=== PATIENT | male | born 1985 | race Caucasian/White ===

== ENCOUNTER 2020-04-17 11:37 | Emergency (ER) | payer SELFPAY ==
[~2020-04-17] VITALS: Ht 177.8 cm; Wt 88.5 kg
[2020-04-17] MEDS ORDERED: ONDANSETRON HCL INJ 2MG/ML 2ML 2 MG/ML VIAL IV STA (11:47)
[2020-04-17] MEDS ORDERED: PANTOPRAZOLE 40 MG 10ML VIAL IV STA (11:47)
[2020-04-17] MEDS ORDERED: SODIUM CHLORIDE 0.9% 1000ML 1,000 ML IV STA (11:47)
[2020-04-17] MEDS ORDERED: DICYCLOMINE HCL 20 MG/2 ML VIAL IM ONE (12:00)
[2020-04-17 12:01] LABS: BASOPHILS % 0.3 % (0.0-1.0); EOSINOPHILS # (AUTO) 0.1 (0.0-0.4); EOSINOPHILS % 0.5 % (0.0-6.0); HEMATOCRIT 42.5 % (38.2-49.6); HEMOGLOBIN 14.6 g/dL (14.0-18.0); LYMPHOCYTES # (AUTO) 2.5 (1.0-3.2); MEAN CORPUSCULAR HEMOGLOBIN 30.5 pg (28-32); MEAN CORPUSCULAR HGB CONC 34.4 g/dL (31-35); MEAN CORPUSCULAR VOLUME 88.9 fL (81-99); MONOCYTES % 6.5 % (4.4-11.3); NEUTROPHILS # (AUTO) 11.8 (2.1-6.9); NEUTROPHILS % 76.2 % (38.7-80.0); PLATELET COUNT 315 x10e3/uL (140-360); RED BLOOD COUNT 4.78 x10e6/uL (4.3-5.7); RED CELL DISTRIBUTION WIDTH 12.7 % (11.7-14.4)
[2020-04-17 12:06] LABS: INR 0.83; PARTIAL THROMBOPLASTIN TIME 24.6 seconds (23.8-35.5); PROTHROMBIN TIME 11.8 seconds (11.9-14.5)
--- OUTSIDE RECORDS SUMMARY | 2020-04-17 12:28 | XMS REPORT | Continuity of Care Document ---
Author Author [facility] Organization [facility] Address [address] [place] [address] Phone Unavailable Care Team Providers Care Box Spring Maker Name Role Phone NO, PCP PCP Unavailable Kg SAUNDERS Unavailable Problems Condition Name Condition Details Condition Category Status Onset Date Resolution Date Last Treatment Date Treating Clinician Comments Source Problem Condition Active [facility] Allergies, Adverse Reactions, Alerts This patient has no known allergies or adverse reactions. Social History Social Habit Start Date Stop Date Quantity Comments Source Sex Assigned At 1985 00:00:00 1985 00:00:00 Male [facility] Medications This patient has no known medications. Vital Signs Vital Name Observation Time Observation Value Comments Source Body Temperature 2020-03-10 18:51:00 98.4 [degF] [facility] Weight 2020-03-10 15:38:00 195 [lb_av] [facility] BMI (Body Mass Index) 2020-03-10 15:38:00 28.0 kg/m2 [facility] Procedures Procedure Date / Time Performed Performing Clinician [facility] e Computed tomography of abdomen and pelvis with contrast 00:00:00 [facility] X-ray of chest, single view 2020-03-10 00:00:00 [facility] Results Test Description Test Time Test Comments Results Result Comments Source CT ABDOMEN/PELVIS W 2020-03-10 20:04:00 [facility] [address], [place] [address] Patient Name: TREY ANAND Aris MR #: [id number] : 1985 Age/Sex: 34/M Req #: [id number] [facility] Physician: Ordered by: JAYCEE SAUNDERS MD Report #: [id number] Location: ER Room/Bed: Procedure: [id number] CT/CT ABDOMEN/PELVIS W Exam Date: 03/10/20 Exam Time: 1801 REPORT STATUS: Signed EXAM: CT Abdomen and Pelvis WITH contrast INDICATION: Lower abdominal pain. Vomiting COMPARISON: None. TECHNIQUE: Abdomen and pelvis were scanned utilizing a multidetector helical scanner from the lung base to the pubic symphysis after administration of IV contrast. Coronal and sagittal reformations were obtained. Routine protocol was performed. Scan was performed when during portal venous phase. IV CONTRAST: 100 mL of Isovue 370 ORAL CONTRAST: None COMPLICATIONS: None RADIATION DOSE: Total DLP: 252 mGy*cm Estimated effective dose: (DLP x 0.015 x size factor) mSv CTDIvol has been reviewed. It is below the limits set by the Radiation Protocol Committee (RPC). Dose modulation, iterative reconstruction, and/or weight based adjustment of the mA/kV was utilized to reduce the radiation dose to as low as reasonably achievable. FINDINGS: LINES and TUBES: None. LOWER THORAX: Unremarkable HEPATOBILIARY: No focal hepatic lesions. No biliary ductal dilation. GALLBLADDER: No radio-opaque stones or sludge. No wall thickening. SPLEEN: No splenomegaly. PANCREAS: No focal masses or ductal dilatation. ADRENALS: No adrenal nodules KIDNEYS/URETERS: Kidneys enhance symmetrically. No hydronephrosis. Small simple appearing posterior left renal cyst. No stones. GI TRACT: No abnormal distention, wall thickening, or evidence of bowel obstruction. Appendix is normal. Moderate amount of retained feces in the colon could be due to constipation. PELVIC ORGANS/BLADDER: Unremarkable. LYMPH NODES: No lymphadenopathy. VESSELS: Unremarkable. PERITONEUM / RETROPERITONEUM: No free air or fluid. BONES: Unremarkable. SOFT TISSUES: Unremarkable. IMPRESSION: Moderate amount of retained feces in the colon could be due to constipation. Signed by: Dr. Martinez Lu M.D. on 03/10/2020 8:08 PM Dictated By: MARTINEZ LU MD, MD 07 Transcribed By: ALESSANDRA on 03/10/202007 COPY TO: JAYCEE SAUNDERS MD CHEST SINGLE (NOT PORTABLE) 2020-03-10 15:56:00 [place] [address] Patient Name: TREY WING MR #: [id number] : 1985 Age/Sex: 34/M Req #: [id number] Adm Physician: Ordered by: JAYCEE SAUNDERS MD Report #: [id number] Location: ER Room/Bed: Procedure: [id number] DX/CHEST SINGLE (NOT PORTABLE) Exam Date: 03/10/20 Exam Time: 1528 REPORT STATUS: Signed EXAMINATION: CHEST SINGLE (NOT PORTABLE) INDICATION: Abdominal pain COMPARISON: None FINDINGS: LINES/TUBES:None LUNGS:The lungs are well-inflated. No focal consolidation or pulmonary edema. PLEURA:No pleural effusion or pneumothorax. MEDIASTINUM:The cardiomediastinal silhouette appears normal in size and shape. BONES/SOFT TISSUES:No acute osseous injury. ABDOMEN:No free air under the diaphragm. IMPRESSION: No focal pneumonia or pulmonary edema. Signed by: Luke Grullon MD on 03/10/2020 3:57 PM Dictated By: LUKE GRULLON MD 56 Transcribed By: ALESSANDRA on 03/10/201556 COPY TO: JAYCEE SAUNDERS MD Blood leukocytes automated count (number/volume) 2020-03-10 15:25:00 Test Item White Blood Count (test code = 6690-2) 15.02 4.8-10.8 [facility] automated count (number/volume)2020-03-10 15:25:00* Test Item Value Reference Range Interpretation Comments Red Blood Count (test code = 789-8) 4.91 4.3-5.7 [facility] hemoglobin measurement (moles/volume)2020-03-10 15:25:00* Test Item Value Reference Range Interpretation Comments Hemoglobin (test code = 41467-0) 14.9 14.0-18.0 [facility] blood hematocrit (volume fraction)2020-03-10 15:25:00* Test Item Value Reference Range Interpretation Comments Hematocrit (test code = 4544-3) 42.9 38.2-49.6 [facility] erythrocyte mean corpuscular [id number] 15:25:00* Test Item Value Reference Range Interpretation Comments Mean Corpuscular Volume (test code = 787-2) 87.4 81-99 [facility] erythrocyte mean corpuscular hemoglobin (mass per erythrocyte)2020-03-10 15:25:00* Test Item Value Reference Range Interpretation Comments Mean Corpuscular Hemoglobin (test code = 785-6) 30.3 28-32 [facility] erythrocyte mean corpuscular hemoglobin concentration measurement (mass/volume)2020-03-10 15:25:00* Test Item Value Reference Range Interpretation Comments Mean Corpuscular Hemoglobin Concent (test code = 786-4) 34.7 31-35 [facility]landsRDW TihKc-[id number] 15:25:00* Test Item Value Reference Range Interpretation Comments Red Cell Distribution Width (test code = 88861-5) 12.4 11.7 -14.4 [facility]lands[facility] blood platelet count (count/volume)2020-03-10 15:25:00* Test Item Value Reference Range Interpretation Comments Platelet Count (test code = 777-3) 272 140-360 [facility]lands[facility] blood segmented neutrophil count as percentage of total fbvwosqkkv4342-20-36 15:25:00* Test Item Value Reference Range Interpretation Comments Neutrophils (%) (Auto) (test code = 82895-1) 79.8 38.7-80.0 [facility]lands[facility] blood lymphocyte count as percentage ot total wzapkcivdu7572-93-67 15:25:00* Test Item Value Reference Range Interpretation Comments Lymphocytes (%) (Auto) (test code = 736-9) 14.7 18.0-39.1 [facility]lands[facility] blood monocyte count as percentage of total djprrsxgrp5344-52-72 15:25:00* Test Item Value Reference Range Interpretation Comments Monocytes (%) (Auto) (test code = 5905-5) 4.5 4.4-11.3 [facility] blood eosinophil count as percentage of total mqaprammlh4892-33-67 15:25:00* Test Item Value Reference Range Interpretation Comments Eosinophils (%) (Auto) (test code = 713-8) 0.3 0.0-6.0 [facility] blood basophil count as percentage of total hrkctarpmk0181-85-74 15:25:00* Test Item Value Reference Range Interpretation Comments Basophils (%) (Auto) (test code = 706-2) 0.2 0.0-1.0 [facility]landsFluoroscopic procedure less than one hour loqqkkho3430-69-32 15:25:00* Test Item Value Reference Range Interpretation Comments IM GRANULOCYTES % (test code = IM GRANULOCYTES %) 0.5 0.0- 1.0 [facility] blood neutrophil count 2020-03-10 15:25:00* Test Item Value Reference Range Interpretation Comments Neutrophils # (Auto) (test code = 751-8) 12.0 2.1-6.9 [facility] lymphocytes count (number/volume) 2020-03-10 15:25:00* Test Item Value Reference Range Interpretation Comments Lymphocytes # (Auto) (test code = 96250-7) 2.2 1.0-3.2 [facility]lands[facility] monocytes automated count (number/volume)2020-03-10 15:25:00* Test Item Value Reference Range Interpretation Comments Monocytes # (Auto) (test code = 742-7) 0.7 0.2-0.8 [facility]lands[facility] blood eosinophil count 2020-03-10 15:25:00* Test Item Value Reference Range Interpretation Comments Eosinophils # (Auto) (test code = 711-2) 0.1 0.0-0.4 [facility] blood basophil count (count/volume)2020-03-10 15:25:00* Test Item Value Reference Range Interpretation Comments Basophils # (Auto) (test code = 704-7) 0.0 0.0-0.1 [facility]landsFluoroscopic procedure less than one hour [id number] 15:25:00* Test Item Value Reference Range Interpretation Comments Absolute Immature Granulocyte (auto ([place] t code = Absolute Immature Granulocyte (auto) 0.07 0-0.1 [facility] sodium [facility] (moles/volume)2020-03-10 15:25:00* Test Item Value Reference Range Interpretation Comments Sodium Level (test code = 2951-2) 142 136-145 [facility] potassium measurement (moles/volume)2020-03-10 15:25:00* Test Item Value Reference Range Interpretation Comments Potassium Level (test code = 2823-3) 3.8 3.5-5.1 [facility] chloride measurement (moles/volume)2020-03-10 15:25:00* Test Item Value Reference Range Interpretation Comments Chloride Level (test code = 2075-0) 109 98-107 [facility] carbon dioxide, total measurement (moles/volume)2020-03-10 15:25:00* Test Item Value Reference Range Interpretation Comments Carbon Dioxide Level (test code = 2028-9) 21 22-29 [facility] plasma anion gtp1950-83-56 15:25:00* Test Item Value Reference Range Interpretation Comments Anion Gap (test code = 18745-7) 15.8 8-16 [facility] urea nitrogen measurement (mass/volume)2020-03-10 15:25:00* Test Item Value Reference Range Interpretation Comments Blood Urea Nitrogen (test code = 3094-0) 11 7-26 [facility] creatinine measurement (mass/volume)2020-03-10 15:25:00* Test Item Value Reference Range Interpretation Comments Creatinine (test code = 2160-0) 0.82 0.72-1.25 [facility] urea nitrogen/creatinine mass [id number] 15:25:00* Test Item Value Reference Range Interpretation Comments BUN/Creatinine Ratio (test code = 3097-3) 13 - [facility]Estimated glomerular filtration rate (GFR) atroasvyppirt5261-88-83 15:25:00* Test Item Value Reference Range Interpretation Comments Estimat Glomerular Filtration Rate (test code = 973200481) > 60 >60 Ranges were taken from the National Kidney Disease Education Program and the [facility] Kidney Foundation literature.Reference ranges:60 or greater: Vktqpq04-86 ( for 3 consecutive months): Chronic kidney disease 15 or less: Kidney failureTexas Children's Hospital The WoodlandsGlucose pkngjamhemk8571-05-01 15:25:00* Test Item Value Reference Range Interpretation Comments Glucose Level (test code = KFU0004) 117 74-118 [facility] calcium measurement (mass/volume)2020-03-10 15:25:00* Test Item Value Reference Range Interpretation Comments Calcium Level (test code = 06410-9) 9.7 8.4-10.2 [facility] total bilirubin measurement (mass/volume)2020-03-10 15:25:00* Test Item Value Reference Range Interpretation Comments Total Bilirubin (test code = 1975-2) 0.5 0.2-1.2 [facility]landsFluoroscopic procedure less than one hour cylqppth2721-26-75 15:25:00* Test Item Value Reference Range Interpretation Comments Aspartate Amino Transf (AST/SGOT) (test code = Aspartate Amino Transf (AST/SGOT)) 16 5-34 [facility] plasma alanine aminotransferase measurement (enzymatic activity/volume)2020-03-10 15:25:00* Test Item Value Reference Range Interpretation Comments Alanine Aminotransferase (ALT/SGPT) (test code = 1742-6) 19 0-55 [facility] or plasma protein measurement (mass/volume)2020-03-10 15:25:00* Test Item Value Reference Range Interpretation Comments Total Protein (test code = 2885-2) 7.5 6.5-8.1 [facility] albumin measurement (mass/volume)2020-03-10 15:25:00* Test Item Value Reference Range Interpretation Comments Albumin (test code = 1751-7) 4.6 3.5-5.0 [facility]landsPlasma globulin measurement (mass/volume) 2020-03-10 15:25:00* Test Item Value Reference Range Interpretation Comments Globulin (test code = 37753-9) 2.9 2.3-3.5 [facility] albumin/globulin mass ljcgv2229-51-75 15:25:00* Test Item Value Reference Range Interpretation Comments Albumin/Globulin Ratio (test code = 1759-0) 1.6 0.8-2.0 [facility] plasma alkaline phosphatase measurement (enzymatic activity/volume)2020-03-10 15:25:00* Test Item Value Reference Range Interpretation Comments Alkaline Phosphatase (test code = 6768-6) 75 40-150 [facility] lipase measurement (enzymatic activity/volume)2020-03-10 15:25:00* Test Item Value Reference Range Interpretation Comments Lipase (test code = 3040-3) 20 8-78 [facility]
[2020-04-17 12:30] LABS: CLARITY,URINE CLEAR (CLEAR); COLOR,URINE YELLOW (YELLOW); KETONES,URINE NEGATIVE (NEGATIVE); LEUKOCYTE ESTERASE ,URINE NEGATIVE (NEGATIVE); NITRITE,URINE NEGATIVE (NEGATIVE); PHENCYCLIDINE SCREEN,URINE NEGATIVE (NEGATIVE); PROTEIN,URINE DIPSTICK NEGATIVE (NEGATIVE)
[2020-04-17 12:31] LABS: AMPHETAMINES SCREEN,URINE NEGATIVE (NEGATIVE); BENZODIAZEPINES SCREEN,URINE NEGATIVE (NEGATIVE); BILIRUBIN,URINE NEGATIVE (NEGATIVE); URINE UROBILINOGEN 0.2 mg/dL (0.2 - 1)
[2020-04-17 12:33] LABS: ALANINE AMINOTRANSFERASE 15 IU/L (0-55); ALBUMIN 4.6 g/dL (3.5-5.0); ALBUMIN/GLOBULIN RATIO 1.5 (0.8-2.0); ALKALINE PHOSPHATASE 74 IU/L (40-150); AMYLASE 63 U/L (25-125); ANION GAP 18.2 mmol/L (8-16); BLOOD UREA NITROGEN 10 mg/dL (7-26); BUN/CREATININE RATIO 11 (6-25); CALCIUM 11.3 mg/dL (8.4-10.2); CARBON DIOXIDE 22 mmol/L (22-29); CHLORIDE 107 mmol/L (98-107); CREATINE KINASE 132 IU/L (30-200); CREATININE, SERUM 0.91 mg/dL (0.72-1.25); EST GLOMERULAR FILTRATION RATE > 60 ML/MIN (60-); GLUCOSE 117 mg/dL (74-118); LIPASE 16 U/L (8-78); MAGNESIUM 1.9 MG/DL (1.3-2.1); POTASSIUM 4.2 mmol/L (3.5-5.1); SODIUM 143 mmol/L (136-145)
[2020-04-17 12:38] LABS: RBC,URINE 0-5 /HPF (0-5); WBC,URINE (MAN) 0-5 /HPF (0-5)
[2020-04-17 12:39] LABS: AMORPHOUS SEDIMENT,URINE FEW (FEW); BACTERIA,URINE FEW /HPF; EPITHELIAL CELLS,URINE FEW /LPF
--- NOTE | 2020-04-17 13:24 | Diagnostic Imaging Report ---
EXAMINATION: CHEST SINGLE (PORTABLE) INDICATION: Chest and abdominal pain. COMPARISON: Chest x-ray on 03/10/2020 FINDINGS: TUBES and LINES: None. LUNGS: Normal lung volumes. Lungs are clear. No consolidations. There is bibasilar atelectasis. PLEURA: No pleural effusion or pneumothorax. HEART AND MEDIASTINUM: The cardiomediastinal silhouette is unremarkable. BONES AND SOFT TISSUES: No acute osseous lesion. Soft tissues are unremarkable. UPPER ABDOMEN: No free air under the diaphragm. IMPRESSION: No acute thoracic radiographic abnormality. Signed by: Darlin Rodgers MD on 04/17/2020 1:21 PM
[2020-04-17] MEDS ORDERED: IOPAMIDOL 370 MG/ML 200 ML INFUS..BTL INJ ONE (14:10)
[2020-04-17] MEDS ORDERED: SODIUM CHLORIDE 0.9% 50ML 50 ML ONE (14:10)
--- NOTE | 2020-04-17 14:37 | Emergency Department Note ---
History of Present Illnes History of Present Illness Chief Complaint: Abdominal Complaints History of Present Illness This is a 34 year old male PATIENT IN FROM HOME WITH COMPLAINTS OF NAUSEA AND VOMITING SINCE WAKING UP THIS MORNING. PATIENT WALKED IN ER DOOR AND IMMEDIATELY GOT ON FLOOR SAYING HE WAS VOMITING AND IN PAIN, NO VOMITING WITNESSED. APPEARS ANXIOUS IN TRIAGE. PATIENT ALERT AND ORIENTED, RESP EVEN AND NONLABORED, RATES PAIN 10/10. PATIENT WITH COMPLAINTS OF ABDOMINAL PAIN AND PAIN WITH INSPIRATION. Historian: Patient Arrival Mode: Car Pediatric Medical Assistant Required: No Onset (how long ago): hour(s) Location: ABDOMEN Quality: PAIN Radiation: Reports non-radiation Severity: severe Onset quality: sudden Timing of current episode: intermittent Progression: waxing and waning Chronicity: new Context: Denies recent illness Relieving factors: none Exacerbating factors: none Treatments prior to arrival: none Past Medical/Family History Physician Review I have reviewed the patient's past medical and family history. Any updates have been documented here. Past Medical History Recent Fever: No Clinical Suspicion of Infectio: No New/Unexplained Change in Ment: No Past Medical History: None Past Surgical History: None Other Surgery: SMALL BOWEL OBSTRUCTION - 3 YEARS AGO EXP LAP - 3 YEARS AGO Social History Smoking Cessation: Current every day smoker Counseling Performed: Yes Alcohol Use: None Any Illegal Drug Use: No TB Exposure/Symptoms: No Physically hurt or threatened: No Family History Family history of heart diseas: No Other Any Pre-Existing Lines (PICC,: No Review of Systems Review of Systems Constitutional: Reports no symptoms EENTM: Reports no symptoms Cardiovascular: Reports no symptoms Respiratory: Reports no symptoms Gastrointestinal: Reports as per HPI, Reports abdominal pain, Reports nausea, Reports vomiting; Denies diarrhea Genitourinary: Reports no symptoms Musculoskeletal: Reports no symptoms Integumentary: Reports no symptoms Neurological: Reports no symptoms Psychological: Reports no symptoms Endocrine: Reports no symptoms Hematological/Lymphatic: Reports no symptoms Physical Exam Related Data Allergies: Coded Allergies: No Known Allergies (Unverified , 03/10/20) Triage Vital Signs Vital Signs Date Time Temp Pulse Resp B/P (MAP) Pulse Ox O2 Delivery O2 Flow Rate FiO2 04/17/20 11:40 98.1 76 18 132/92 100 Room Air Vital signs reviewed: Yes Physical Exam CONSTITUTIONAL Constitutional: Present well-developed, Present well-nourished HENT HENT: Present normocephalic, Present atraumatic, Present oropharynx clear/ moist, Present nose normal HENT L/R: Present left ext ear normal, Present right ext ear normal EYES Eyes: Reports PERRL, Reports conjunctivae normal NECK Neck: Present ROM normal PULMONARY Pulmonary: Present effort normal, Present breath sounds normal CARDIOVASCULAR Cardiovascular: Present regular rhythm, Present heart sounds normal, Present capillary refill normal, Present normal rate GASTROINTESTINAL Abdominal: Present soft, Present tender (MILD DIFFUSE, SLIGHTLY WORSE IN FAIZAN AREA) GENITOURINARY Genitourinary: Present exam deferred SKIN Skin: Present warm, Present dry MUSCULOSKELETAL Musculoskeletal: Present ROM normal NEUROLOGICAL Neurological: Present alert, Present oriented x 3, Present no gross motor or sensory deficits PSYCHOLOGICAL Psychological: Present mood/affect normal, Present judgement normal Results Laboratory Result Diagram: 04/17/20 1147 04/17/20 1147 Laboratory Laboratory Tests Test 04/17/20 12:09 04/17/20 11:47 Urine Color Yellow (YELLOW) Urine Clarity Clear (CLEAR) Urine pH 7.5 (5 - 7) Urine Specific [place] 1.025 (1.010-1.025) Urine Protein Negative (NEGATIVE) Urine Glucose (UA) Negative (NEGATIVE) Urine Ketones Negative (NEGATIVE) Urine Blood Trace (NEGATIVE) Urine Nitrite Negative (NEGATIVE) Urine Bilirubin Negative (NEGATIVE) Urine Urobilinogen 0.2 mg/dL (0.2 - 1) Urine Leukocyte Esterase Negative (NEGATIVE) Urine RBC 0-5 /HPF (0-5) Urine WBC 0-5 /HPF (0-5) Urine Epithelial Cells Few /LPF (NONE) Urine Amorphous Sediment Few (FEW) Urine Bacteria Few /HPF (NONE) Urine Opiates Screen Negative (NEGATIVE) Urine Methadone Screen Negative (NEGATIVE) Urine Barbiturates Screen Negative (NEGATIVE) Urine Phencyclidine Screen Negative (NEGATIVE) Urine Amphetamines Screen Negative (NEGATIVE) Urine Methamphetamines Screen Negative (NEGATIVE) Urine Benzodiazepines Screen Negative (NEGATIVE) Urine Cocaine Screen Negative (NEGATIVE) Urine Cannabinoids Screen Negative (NEGATIVE) White Blood Count 15.52 x10e3/uL (4.8-10.8) Red Blood Count 4.78 x10e6/uL (4.3-5.7) Hemoglobin 14.6 g/dL (14.0-18.0) Hematocrit 42.5 % (38.2-49.6) Mean Corpuscular Volume 88.9 fL (81-99) Mean Corpuscular Hemoglobin 30.5 pg (28-32) Mean Corpuscular Hemoglobin Concent 34.4 g/dL (31-35) Red Cell Distribution Width 12.7 % (11.7-14.4) Platelet Count 315 x10e3/uL (140-360) Neutrophils (%) (Auto) 76.2 % (38.7-80.0) Lymphocytes (%) (Auto) 16.0 % (18.0-39.1) Monocytes (%) (Auto) 6.5 % (4.4-11.3) Eosinophils (%) (Auto) 0.5 % (0.0-6.0) Basophils (%) (Auto) 0.3 % (0.0-1.0) Neutrophils # (Auto) 11.8 (2.1-6.9) Lymphocytes # (Auto) 2.5 (1.0-3.2) Monocytes # (Auto) 1.0 (0.2-0.8) Eosinophils # (Auto) 0.1 (0.0-0.4) Basophils # (Auto) 0.0 (0.0-0.1) Absolute Immature Granulocyte (auto 0.08 x10e3/uL (0-0.1) Prothrombin Time 11.8 seconds (11.9-14.5) Prothromb Time International Ratio 0.83 Activated Partial Thromboplast Time 24.6 seconds (23.8-35.5) Sodium Level 143 mmol/L (136-145) Potassium Level 4.2 mmol/L (3.5-5.1) Chloride Level 107 mmol/L (98-107) Carbon Dioxide Level 22 mmol/L (22-29) Anion Gap 18.2 mmol/L (8-16) Blood Urea Nitrogen 10 mg/dL (7-26) Creatinine 0.91 mg/dL (0.72-1.25) Estimat Glomerular Filtration Rate > 60 ML/MIN (60-) BUN/Creatinine Ratio 11 (6-25) Glucose Level 117 mg/dL (74-118) Calcium Level 11.3 mg/dL (8.4-10.2) Magnesium Level 1.9 MG/DL (1.3-2.1) Total Bilirubin 0.3 mg/dL (0.2-1.2) Aspartate Amino Transf (AST/SGOT) 17 IU/L (5-34) Alanine Aminotransferase (ALT/SGPT) 15 IU/L (0-55) Alkaline Phosphatase 74 IU/L (40-150) Creatine Kinase 132 IU/L (30-200) Creatine Kinase MB 0.90 ng/mL (0-5.0) Troponin I 0.005 ng/mL (0-0.300) Total Protein 7.6 g/dL (6.5-8.1) Albumin 4.6 g/dL (3.5-5.0) Globulin 3.0 g/dL (2.3-3.5) Albumin/Globulin Ratio 1.5 (0.8-2.0) Amylase Level 63 U/L (25-125) Lipase 16 U/L (8-78) Lab results reviewed: Yes Imaging Imaging results reviewed: Yes Assessment & Plan Medical Decision Making MDM ABD PAIN, N/V - CHECK CBC, CHEM's, AMYLASE/LIPASE, CARDIACS, UA/CX, UDS, CT ABD/PELVIS, COVID SWAB - R/O PANCREATITIS, SBO, COLITIS, DRUG USE Reassessment Reassessment PT'S CALLED, SPOKE WITH SPOOL CLEANER HAND, SAID HE USES DRUGS AND DRINKS A LOT - WILL ADD ETOH LEVEL 1555 - pt decided he did not want further care. I explained that CT results should be back soon but he decided to leave. I explained risks including and he understands. I explained he is welcome to return any time. Since he left prior to final dispo, he is discharged from my care Assessment & Plan Final Impression: (1) Abdominal pain Depart Disposition: HOME, SELF-CARE Last Vital Signs Date Time Temp Pulse Resp B/P (MAP) Pulse Ox O2 Delivery O2 Flow Rate FiO2 04/17/20 11:40 98.1 76 18 132/92 100 Room Air Medications in the ED Pantoprazole Sodium 40 mg ONCE STAT IV Last administered on 04/17/20at 12:13; Admin Dose 40 MG; Start 04/17/20 at 11:47; Stop 04/17/20 at 12:01; Status DC Ondansetron HCl 4 mg ONCE STAT IV Last administered on 04/17/20at 12:13; Admin Dose 4 MG; Start 04/17/20 at 11:47; Stop 8/29/20 at 12:01; Status DC Sodium Chloride 1,000 ml @ 0 mls/hr Q0M STAT IV Last administered on 04/17/20at 11:59; Admin Dose 1,000 MLS/HR; Start 04/17/20 at 11:47; Stop 04/17/20 at 11:50; Status DC Dicyclomine HCl 20 mg ONCE ONCE IM Last administered on 04/17/20at 11:59; Admin Dose 20 MG; Start 04/17/20 at 12:00; Stop 04/17/20 at 12:01; Status DC Sodium Chloride 50 ml @ ud STK-MED ONCE .ROUTE ; Start 04/17/20 at 14:10; Stop 04/17/20 at 14:04; Status DC Iopamidol 74,000 mg STK-MED ONCE INJ ; Start 04/17/20 at 14:10; Stop 04/17/20 at 14:04; Status DC ANTOINETTE PACE MD Apr 17, 2020 14:37
--- NOTE | 2020-04-17 16:06 | Diagnostic Imaging Report ---
EXAM: CT Abdomen and Pelvis WITH contrast INDICATION:ABD PAIN, N/V, CP COMPARISON: None. TECHNIQUE: Abdomen and pelvis were scanned utilizing a multidetector helical scanner from the lung base to the pubic symphysis after administration of IV contrast. Coronal and sagittal reformations were obtained. Routine protocol was performed. Scan was performed when during portal venous phase. IV CONTRAST: 100 mL of Isovue 370 ORAL CONTRAST: None COMPLICATIONS: None RADIATION DOSE: Total DLP: 698.58 mGy*cm Estimated effective dose: (DLP x 0.015 x size factor) mSv CTDIvol has been reviewed. It is below the limits set by the Radiation Protocol Committee (RPC). Dose modulation, iterative reconstruction, and/or weight based adjustment of the mA/kV was utilized to reduce the radiation dose to as low as reasonably achievable. FINDINGS: LINES and TUBES: None. LOWER THORAX: Unremarkable HEPATOBILIARY: No focal hepatic lesions. No biliary ductal dilation. GALLBLADDER: No radio-opaque stones or sludge. No wall thickening. SPLEEN: No splenomegaly. PANCREAS: No focal masses or ductal dilatation. ADRENALS: No adrenal nodules KIDNEYS/URETERS: Kidneys enhance symmetrically. No hydronephrosis. No cystic or solid mass lesions. No stones. GI TRACT: No abnormal distention, wall thickening, or evidence of bowel obstruction. Appendix is normal. PELVIC ORGANS/BLADDER: Unremarkable. LYMPH NODES: No lymphadenopathy. VESSELS: Unremarkable. PERITONEUM / RETROPERITONEUM: No free air or fluid. BONES: Unremarkable. SOFT TISSUES: Unremarkable. IMPRESSION: No acute abdominopelvic abnormality identified. Signed by: Darlin Rodgers MD on 04/17/2020 4:03 PM
== END 2020-04-17 15:55 | disposition home or self-care (01) ==
LOC: ER 11:50
DX: R10.9 Unspecified abdominal pain (principal); R11.2 Nausea with vomiting, unspecified; F17.210 Nicotine dependence, cigarettes, uncomplicated
CPT/HCPCS: 36415; 71045; 74177; 80053; 80307; 80320; 81001; 82150; 82550; 82553; 83690; 83735; 84484; 85025; 85610; 85730; 87086; 99284; C9113; J0500; J2405; J7030; Q9967